=== PATIENT | female | born 1945 | race Caucasian/White ===

== ENCOUNTER 2019-06-21 09:44 | Day surgery (SDC) | payer MEDICARE, BC ==
[~2019-06-21 09:44] MED LIST: ACETAMINOPHEN 1,000 MG/100 ML BTL IVPB ONE; CEFAZOLIN 2 Gram 2 GM/50 ML BAG IVPB ONE; RINGERS SOLUTION,LACTATED 1,000 ML IV ONE
[2019-06-21] MEDS ORDERED: SUCCINYLCHOLINE 20 MG/ML 10ML IVP ONE (09:45)
[2019-06-21] MEDS ORDERED: ONDANSETRON HCL IV 4 MG/2 ML VIAL IVP ONE (09:45)
[2019-06-21] MEDS ORDERED: DEXAMETHASONE 4 MG/ML 1ML VIAL IVP ONE (09:45)
[2019-06-21] MEDS ORDERED: EPHEDRINE SULFATE 50 MG/ML ML IV ONE (09:45)
[2019-06-21] MEDS ORDERED: PROPOFOL 10 MG/ML VIAL IV ONE (09:45)
[2019-06-21] MEDS ORDERED: FENTANYL PF 100MCG/2ML VIAL IV ONE (09:45)
[2019-06-21] MEDS ORDERED: ROCURONIUM BROMIDE 50MG/5ML VIAL IV ONE (09:45)
[2019-06-21] MEDS ORDERED: GLYCOPYRROLATE 0.2 MG/ML ML IV ONE (09:45)
[2019-06-21] MEDS ORDERED: MIDAZOLAM HCL 2MG/2ML VIAL IV ONE (09:45)
[2019-06-21] MEDS ORDERED: KETOROLAC 30 MG/ML VIAL IVP ONE (09:45)
[2019-06-21] MEDS ORDERED: NEOSTIGMINE 1 MG/1 ML,10ML VIAL IV ONE (09:45)
[2019-06-21] MEDS ORDERED: LIDOCAINE 2% MDV (20MG/ML) 20ML VIAL IV ONE (09:45)
[2019-06-21] MEDS ORDERED: SEVOFLURANE 250 ML INH ONE (09:45)
[2019-06-21] MEDS ORDERED: BUPIVACAINE LIPOSOME 266MG/20ML VIAL SQ ONE (12:44)
[2019-06-21] MEDS ORDERED: EPINEPHRINE 1 MG/ML AMPUL SQ ONE ×2 (12:44)
[2019-06-21] MEDS ORDERED: BUPIVACAINE 0.5% W/EPI MPF 30 ML VIAL SQ ONE (12:44)
[2019-06-21] MEDS ORDERED: RINGERS SOLUTION,LACTATED 1,000 ML IV ONE (13:00)
--- NOTE | 2019-06-28 18:40 | Operative Note ---
DATE OF SURGERY: PREOPERATIVE DIAGNOSES: 1. Right shoulder rotator cuff tear. 2. Acromioclavicular joint arthrosis. 3. Biceps tendon partial tear. POSTOPERATIVE DIAGNOSES: 1. Right shoulder rotator cuff tear. 2. Acromioclavicular joint arthrosis. 3. Biceps tendon partial tear. 4. Glenohumeral arthrosis. OPERATION: 1. Diagnostic arthroscopy. 2. Arthroscopic acromioplasty and subacromial decompression. 3. Arthroscopic excision of distal clavicle AC joint. 4. Arthroscopic rotator cuff repair. 5. Arthroscopic biceps tenotomy. SURGEON: Darío Heck MD ANESTHESIA: General endotracheal, interscalene block. ANESTHESIA PROVIDER: BASHIR Brice COMPLICATIONS: None. ESTIMATED BLOOD LOSS: Minimal. OPERATIVE FINDINGS: A full-thickness, medium tear anterior supraspinatus tendon, some retraction, delamination posteriorly and a large tear of the biceps tendon. Slight fraying of the subscap tendon. AC joint arthrosis. COMPONENTS PLACED: Two Ratliff and Nephew 5.5 mm Regenesorb anchors with two #2 Ultrabraid sutures and one Multifix suture anchor loaded with the 4 limbs of the sutures. INDICATION: This is a 73-year-old female with persistent pain and dysfunction in shoulder for several years. Nonoperative treatment. She had an ultrasound which showed a full-thickness anterior rotator cuff tear. She is scheduled for procedures above. I explained all risks and benefits in detail for her diagnoses and procedures including but not limited to infection, nerve injury, vessel injury, persistent pain, numbness and tingling in shoulder, retear of rotator cuff, need for further procedures. All her questions were thoroughly answered. Rehab course outlined. She agreed to proceed. PROCEDURE: The patient was brought to the OR, placed in the beach chair position, prepped for surgery. General endotracheal anesthesia induced. Her right upper extremity and shoulder were prepped in sterile fashion. Prepped again with ChloraPrep. It was draped. Intraoperative timeout was performed. Next, the glenohumeral joint and subacromial space and AC joint were injected with 0.5% Marcaine with epi. Standard posterior arthroscopic portal established under direct visualization and diagnostic arthroscopy performed. The biceps tendon was partially torn. I medially cut and released that. Superior labrum normal. Posterior superior labrum normal. Axial recess normal. Posterior inferior labrum normal. The undersurface of the rotator cuff was thoroughly inspected. There was a full-thickness tear anteriorly on the supraspinatus tendon. Retracted to the glenoid rim. The mid portion of the cuff site fraying articular surface otherwise no complete tear there and posterior portion of cuff was normal. The articular cartilage of glenoid and humeral head had grade 1 chondromalacia. The superior middle glenoid was intact. The subscap tendon had some slight undersurface tensile failure. Otherwise, no significant complete tear. The anterior and inferior labrum glenoid looked normal. Next we shaved the anterior portal and debrided back the greater tuberosity at the tear site posteriorly and articular surface partial fraying inserting blader to bleeding bone in preparation for repair. Next, the anteroposterior subacromial port established. The tissue blader was inserted in the anterior subacromial portal and I performed bursectomy, removing the anterolateral edge of the acromion, incorporating the acromioclavicular ligament and opened up the inferior joint capsule. Next, a bur was inserted in the anterolateral portal and burred down. We took off strips of bone from lateral, medial, anterior, and posterior including the type 3 acromion to a flat planar surface. We used a rasp to smooth subacromial surface and verify it was flat with a probe from the posterior portal. Next, we inserted a bur in the anterior portal, burred down the medial acromion, resected the distal cuff 1 cm, made a small stab incision superior over the AC joint, inserted the shaver there and verified the AC joint was completely free of any bony impingement or bony fragments with a shaver, smoothed both bony edges. Next, we thoroughly inspected the bursa. There was a cuff tear again. There was a full-thickness tear but medium in size about 2-3 cm wide with traction almost to the glenoid rim. We released the articular surface of the cuff no more than 1 cm medially and suprascapular nerve from the base of the coracoid inferiorly and anterosuperiorly and posterosuperiorly. Then the cuff had better excursion over the greater tuberosity edge. Next, established accessory anterolateral portal with the disposable cannula and localized entry point for rotator cuff anchor at the prepared greater tuberosity articular margin after we previously burred that with a shaver to bleeding bone surface. Next, made small stab incision, inserted the punch tap, inserted anchor to the surface of the bone. We passed 1 limb on each side of the suture with a curved penetrator working from anterior to posterior and covering the entire surface with 2 mattress sutures, 2 cm medial to the cuff tear edge. Next, placed a lateral anchor at the greater tuberosity edge. This time we only passed one limb on each side of the suture slightly posterior to the previously-placed medial mattress sutures to create a Patrice-Benjamin type construct. We then again tied down each corresponding mattress medial row suture set with a taut line hitch, slide and lock knot, backed up with three reverse half hitchs alternating posterior throws and then with each corresponding lateral simple suture over the top and cut those sutures, and left the 2 medial sutures. We inspected the cuff and it was down nicely; however, we could improve our fixation even better using a lateral anchor. Therefore, we loaded the suture limbs; loaded on to a Multifix anchor and around over the greater tuberosity edge and then we placed that anchor, tensioned the sutures, inserted the anchor, tapped down, inserted it, screwed it in place, and this tucked down, then cuffed the tear edge further, stabilizing our repair. Our bursal surface, rotator cuff was intact. Sutures intact. Repair was down and intraarticularly directly visualized. Cuff was down nicely. This completed our procedure. Scope and curtain were removed. Incisions were covered with Steri-Strips. The shoulder was bolused with 0.5% Marcaine with Epi and Exparel, and she received Toradol IV. Sterile dressing applied, UltraSling and ice cooler wrap. The patient tolerated procedure well. No intraoperative complications. Sponge, needle, and blade counts correct. Recovery room neurovascularly intact. She will be discharged as an outpatient with [facility] nurse and follow up in 2 weeks. RAMÓN
== END 2019-06-21 15:21 | disposition home or self-care (01) ==
LOC: SUR 09:44
PROVIDERS: ATTEND Orthopaedic Surgery
DX: M75.101 Unspecified rotator cuff tear or rupture of right shoulder, not specified as traumatic (principal); M19.011 Primary osteoarthritis, right shoulder; I10 Essential (primary) hypertension; K21.9 Gastro-esophageal reflux disease without esophagitis; E03.9 Hypothyroidism, unspecified; G47.33 Obstructive sleep apnea (adult) (pediatric); J45.909 Unspecified asthma, uncomplicated; I34.1 Nonrheumatic mitral (valve) prolapse; F32.9 Major depressive disorder, single episode, unspecified
CPT/HCPCS: 29827; 29824; 01630; C1713 ×2; J1885; J2405; J3010; J0690; C9290; J0171; J0330; J2710; J7120